=== PATIENT | female | born 1960 | race Caucasian/White ===

== ENCOUNTER 2025-05-12 10:58 | Outpatient (CLI) | payer MEDICARE, BC ==
[2025-05-12 12:00] LABS: Estimated GFR - POC 97.0
== END 2025-05-12 10:59 | disposition home or self-care (01) ==
LOC: SCSMRI 10:58
PROVIDERS: ATTEND Oral & Maxillofacial Surgery
DX: D10.2 Benign neoplasm of floor of mouth (principal); K11.8 Other diseases of salivary glands
CPT/HCPCS: 36415; 70543; 82565